=== PATIENT | female | born 1995 | race Caucasian/White ===

== ENCOUNTER 2022-01-30 21:58 | Emergency (ER) | payer OTHER ==
[2022-01-30] MEDS ORDERED: Ondansetron 4 MG Tab.DIS PO ONE (22:14)
== END 2022-01-30 23:20 | disposition home or self-care (01) ==
LOC: FB.ED 21:58
DX: G40.A09 Absence epileptic syndrome, not intractable, without status epilepticus (principal); Z88.0 Allergy status to penicillin
CPT/HCPCS: 36415; 80307; 99283; Q0162